=== PATIENT | male | born 1970 | race Hispanic/Latino ===

== ENCOUNTER 2025-05-08 23:17 | Inpatient (IN) | payer SELFPAY ==
[~2025-05-08] VITALS: Ht 177.8 cm; Wt 68.9 kg
--- NOTE | 2025-05-08 23:56 | EKG ---
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
[2025-05-09] VITALS (14 sets, daily range): BP systolic 116–175; BP diastolic 51–92; PULSE 85–99; RESP 15–21; TEMP 97.4–98; O2SAT 98–100
[2025-05-09 00:30] LABS: CREATININE 0.6 mg/dL (0.5-1.3); GLOMERULAR FILTR. RATE CALC 115.0 mL/min (>90); GLUCOSE,RANDOM 112.0 mg/dL (70-105); SODIUM SERUM 125.0 mmol/L (136-145); UREA NITROGEN, BLOOD 9.0 mg/dL (7-18)
[2025-05-09 00:34] LABS: ASPARTATE AMINOTRANSFERASE 40.0 U/L (10-37); TOTAL PROTEIN, SERUM 6.8 g/dL (6.0-8.3)
[2025-05-09 00:43] LABS: IMMATURE GRANULOCYTE ABSOLUTE 0.03 K/uL (0-1); NUCLEATED RED BLOOD CELLS 0.0 % (0.0-0.19); PLATELET COUNT (AUTO) 146 K/uL (130-400); RED BLOOD CELL COUNT(AUTO) 2.95 MIL/uL (4.50-6.20); RED CELL DISTRIBUTION WIDTH 17.2 % (11.0-15.5); WHITE BLOOD COUNT (AUTO) 8.4 K/uL (4.8-10.8)
[2025-05-09 00:53] LABS: INR 1.59 (0.85-1.15)
--- NOTE | 2025-05-09 01:11 | ERN ---
ED Note History of Present Illness Stated Complaint: SOB, ABD DISTENTION Chief Complaint: Multiple Complaints Time Seen by MD: 23:33 Time Seen by Midlevel: 23:33 Dictation: The patient is a 55-year-old male with a history of liver cirrhosis, recently d iagnosed with tuberculosis who presents to the emergency department with complaints of shortness of breath onset 40 minutes prior to arrival. Patient also reports abdominal distention. Patient reports occasional clear productive cough. Reports that he was recently diagnosed with tuberculosis in [place] and is supposed to scheduled for treatment starting on Sunday. Patient denies any chest pain, denies any fevers, nausea or vomiting. Patient is poor historian Allergies: Coded Allergies: No Known Allergies (Unverified Allergy, Unknown, 05/08/25) Past Medical History Past Medical History: Other Additional Past Medical Hx: TB, CIRRHOSIS Surgical History: None RN Note Reviewed/Agreed w/PFSH: Yes Review of System Dictation Constitutional: Negative for fever,chills, and weight loss Eyes: Negative for injury, pain,redness, and discharge ENT: Negative for injury,pain or swelling Cardiovascular: Negative for chest pain, palpitations, and edema Respiratory: Negative for wheezing, positive for shortness of breath, cough Abdomen/GI: Negative for nausea, vomiting, diarrhea, and constipation positive for abdominal pain Back: Negative for injury and pain : Negative for injury, bleeding and discharge MS/Extremity: Negative for injury and deformity Skin: Negative for rash, and discoloration Neuro: Negative for headache, weakness, numbness, tingling, and seizure Psych: Negative for suicide ideation, homicidal ideation, and hallucinations Initial Vital Sign VS Vital Signs Date Time Temp Pulse Resp B/P (MAP) Pulse Ox O2 Delivery O2 Flow Rate FiO2 05/08/25 23:19 98.8 109 27 141/95 99 Room Air 05/09/25 00:15 0 21 Physical Exam Dictation Vital Signs reviewed General Appearance: Alert, oriented x 3, mildly distress, ill-appearing Head and Face: non-traumatic. Eyes: PERRL, pink conjunctivas, eyelid no trauma, anterior chamber with arcus senilis. Ears: Pinnas intact and no signs of trauma or erythema ear canals clear and no discharge TM no erythema Nose: No discharge, no bleeding. Oropharynx: Mouth normal, tongue pink. pharynx clear,no erythema, tonsils no exudates, no abscesses noted, mucous membrane moist Neck: Supple, non-tender, no thyromegaly, no masses, no JVD, no bruits Breast:Deferred Chest:No tenderness, no crepitus, no paradoxical movement, no retractions Lungs:Clear, well-ventilated, symmetric, no rales, no wheezing, no rhonchi, no stridor, diminished sounds Heart: Regular rate, regular rhythm, no murmur, no gallops Vascular: 3+ bilateral pitting edema Abdomen: Firm, diminished bowel sounds, distended no guarding, nontender, no rebound, no masses no hepatomegaly, no splenomegaly, no Thompson's sign, no hernias. Rectal: Deferred Genital: Deferred Neurological: Normal speech, motor function intact, sensory function intact Musculoskeletal: Neck nontender, full range of motion, back nontender, full range of motion, Extremities: nontender, full range of motion Skin: Color pale, dry, no turgor, no rash, no lacerations, no abrasions, no contusions. Lymphatic: Deferred Results (Laboratory/Radiology) Laboratory/Radiology Laboratory Tests Test 05/09/25 00:12 White Blood Count 8.4 K/uL (4.8-10.8) Red Blood Count 2.95 MIL/uL (4.50-6.20) L Hemoglobin 9.6 g/dL (14.0-18.0) L Hematocrit 27.4 % (42-54) L Mean Corpuscular Volume 92.9 fL (79-99) Mean Corpuscular Hemoglobin 32.5 pg (27.0-33.0) Mean Corpuscular Hemoglobin Concent 35.0 g/dL (32.0-36.0) Red Cell Distribution Width 17.2 % (11.0-15.5) H Platelet Count 146 K/uL (130-400) Mean Platelet Volume 8.5 fL (7.5-10.5) Immature Granulocyte % (Auto) 0.4 % (0-1) Neutrophils (%) (Auto) 76.6 % (40.0-77.0) Lymphocytes (%) (Auto) 9.2 % (21.0-51.0) L Monocytes (%) (Auto) 12.2 % (3.0-13.0) Eosinophils (%) (Auto) 1.0 % (0.0-8.0) Basophils (%) (Auto) 0.6 % (0.0-5.0) Neutrophils # (Auto) 6.4 K/uL (1.8-7.7) Lymphocytes # (Auto) 0.8 K/uL (1.0-4.8) L Monocytes # (Auto) 1.0 K/uL (0.1-1.0) Eosinophils # (Auto) 0.08 K/uL (0.00-0.70) Basophils # (Auto) 0.05 K/uL (0.00-0.20) Absolute Immature Granulocyte (auto 0.03 K/uL (0-1) Nucleated Red Blood Cells 0.0 % (0.0-0.19) White Cell Morphology Comment See comments Prothrombin Time 16.1 SEC (9.6-11.6) H Prothromb Time International Ratio 1.59 (0.85-1.15) H Activated Partial Thromboplast Time 48.7 SEC (26.3-35.5) H Sodium Level 125 mmol/L (136-145) L Potassium Level 3.2 mmol/L (3.5-5.1) L Chloride Level 95 mmol/L (101-111) L Carbon Dioxide Level 25 mmol/L (21-32) Blood Urea Nitrogen 9 mg/dL (7-18) Creatinine 0.6 mg/dL (0.5-1.3) Glomerular Filtration Rate Calc 115 mL/min (>90) Random Glucose 112 mg/dL (70-105) H Total Calcium 7.3 mg/dL (8.5-10.1) L Magnesium Level 1.50 mg/dL (1.80-2.40) L Total Bilirubin 1.6 mg/dL (0.2-1.0) H Aspartate Amino Transf (AST/SGOT) 40 U/L (10-37) H Alanine Aminotransferase (ALT/SGPT) 31 U/L (12-78) Alkaline Phosphatase 220 U/L (50-136) H Ammonia 20 umol/L (11-32) Troponin I High Sensitivity 9 ng/L (4-75) B-Type Natriuretic Peptide 36 pg/mL (0-100) Total Protein 6.8 g/dL (6.0-8.3) Albumin 1.6 g/dL (3.5-5.0) L Lipase 114 U/L (16-77) H EXAM: CR Chest, 1 view CLINICAL HISTORY: Shortness of breath. COMPARISON: None provided. FINDINGS: Severe pneumothorax (more than 90%) on the right side with compressive atelectasis and superior displacement of the entire right lung. Small pleural effusion on the right side. The left lung is clear. The cardiac size is within normal limits. No acute osseous abnormality. IMPRESSION: Severe pneumothorax (more than 90%) on the right side with compressive atelectasis and superior displacement of the entire right lung. Small pleural effusion on the right side. Labs Reviewed?: Yes EKG: (+) rhythm (Sinus rhythm) EKG Comment: Date:05/08/2025 Time:2351 Ventricular rate:98 OH interval:142 QRS duration:86 QT/QTc:343/438 EKG interpretation: Sinus rhythm Reviewed by ED Attending no STEMI ED Course ED Course Orders Procedure Category Date Status Time Cbc With Differential LAB 05/08/25 Complete 23:46 Chest 1vw RAD 05/08/25 Resulted 23:46 12 Lead Ekg Tracing- EKG 05/08/25 Complete Technical 23:46 Magnesium LAB 05/08/25 Complete 23:46 Troponin I High LAB 05/08/25 Complete Sensitivity 23:46 Urinalysis Profile LAB 05/08/25 Logged 23:46 Ammonia LAB 05/08/25 Complete 23:46 Pt And Ptt LAB 05/08/25 Complete 23:46 Comprehensive LAB 05/08/25 Complete Metabolic Panel 23:46 Lipase LAB 05/08/25 Complete 23:46 B-Type Natriuretic LAB 05/08/25 Complete Peptide 23:46 Potassium Bicarb/Cit PHA 05/09/25 Complete Ac 25meq (K-Lyte Ta 01:00 Magnesium Oxide PHA 05/09/25 Complete (Mag-Ox) 01:00 Morphine 2mg Syg PHA 05/09/25 Complete (Morphine 2mg Syg) 01:00 Ondansetron 4mg Inj PHA 05/09/25 Complete (Zofran 4mg Inj) 01:00 Ct Chest W/O Contrast CT 05/09/25 Taken 01:43 *Nursing CPOE 05/09/25 Transmitted Communication: 01:44 Infectious Disease CONPHYSVC 05/09/25 Transmitted Consult 08:00 Consistent Carb DIET 05/10/25 Transmitted Breakfast M. Tuberculosis Pcr OMID 05/09/25 Logged 02:14 Basic Metabolic Panel LAB 05/09/25 Logged 04:00 Cbc With Differential LAB 05/09/25 Logged 04:00 Magnesium LAB 05/09/25 Logged 04:00 Phosphorus LAB 05/09/25 Logged 04:00 Respiratory Cult OMID 05/09/25 Logged W/Gram Stain 02:14 Urinalysis Profile LAB 05/09/25 Logged 02:14 Ammonia LAB 05/09/25 Logged 02:14 Initiate Po ABHINAV 05/09/25 In Process Hypokalemia Protoc 02:14 Potassium Chloride PHA 05/09/25 In Process 20meq/100ml ([place] 02:30 Potassium Chl 10% PHA 05/09/25 In Process Elixir 20meq (Kcl 10% 02:30 Potassium Chloride PHA 05/09/25 In Process 20meq Er (K-Dur/Klor- 02:30 Notify Physician If CPOE 05/09/25 Transmitted There Is 02:14 Notify Md On The Next CPOE 05/09/25 Transmitted 02:14 Notify Md On The CPOE 05/09/25 Transmitted Next(Cont.) 02:14 Magnesium 2gm Premix PHA 05/09/25 In Process 50ml (Magnesium 2gm 02:30 Doxycycline 100mg+Ns PHA 05/09/25 In Process 250ml (Doxycycline 02:30 Blood Cult OMID 05/09/25 Logged 02:14 Lactic Acid LAB 05/09/25 Logged 02:14 Procalcitonin LAB 05/09/25 Logged 02:14 Activity: Ad Karyna CPOE 05/09/25 Transmitted 02:14 Apply Knee High Teds CPOE 05/09/25 Transmitted 02:14 Apply Scds CPOE 05/09/25 Transmitted 02:14 Condition: CPOE 05/09/25 Transmitted 02:14 Daily Weights CPOE 05/09/25 Transmitted 02:14 Daily Fluid Intake CPOE 05/09/25 Transmitted Restriction 02:14 I&O Q Shift CPOE 05/09/25 Transmitted 02:14 Nurse To Enter Home CPOE 05/09/25 Transmitted Medication 02:14 Oxygen By Nc/Pulse Ox CPOE 05/09/25 Transmitted 02:14 Vital Signs(Adult CPOE 05/09/25 Transmitted Hospitalist) 02:14 Admit Orders ADM 05/09/25 Transmitted 02:14 Acetaminophen 325 Tab PHA 05/09/25 In Process (Tylenol 325mg Tab 02:30 Ipratropium/Albuterol PHA 05/09/25 In Process Neb (Duoneb) 06:00 Enoxaparin Sodium 40 PHA 05/09/25 In Process Mg/0.4 Ml (Lovenox) 09:00 Famotidine 20mg Tab PHA 05/09/25 In Process (Pepcid 20mg Tab) 09:00 Hydralazine 20mg Inj PHA 05/09/25 In Process (Apresoline 20mg In 02:30 Lactulose 20 Gm/30 Ml PHA 05/09/25 In Process Udcup (Constulose 09:00 Ondansetron 4mg Inj PHA 05/09/25 In Process (Zofran 4mg Inj) 02:30 Morphine 2mg Syg PHA 05/09/25 In Process (Morphine 2mg Syg) 02:30 Droplet Precautions CPOE 05/09/25 Transmitted 02:21 Guaifenesin Sug-Nikos PHA 05/09/25 In Process 100 Mg/5ml (Robituss 02:30 Us Abdominal Complete US 05/09/25 Logged 02:21 Vital Signs Date Time Temp Pulse Resp B/P (MAP) Pulse Ox O2 Delivery O2 Flow Rate FiO2 05/09/25 01:46 97 18 124/78 99 Non-Rebreather+ 10 100 05/09/25 00:15 100 18 142/79 100 Room Air* 0 21 05/08/25 23:19 98.8 109 27 141/95 99 Room Air Medical Decision Making MDM MDM: The patient is a 55-year-old male with a history of liver cirrhosis, recently diagnosed with tuberculosis who presents to the emergency department with complaints of shortness of breath onset 40 minutes prior to arrival. Patient also reports abdominal distention. Patient reports occasional clear productive cough. Reports that he was recently diagnosed with tuberculosis in [place] and is supposed to scheduled for treatment starting on Sunday. Patient denies any chest pain, denies any fevers, nausea or vomiting. Patient is poor historian 0120: Patient's mother has provided with records from [facility]. According to the records patient was initially admitted I on March 22 2025 with a complaints of cough, sore throat for the last six months. Patient however left AMA on April 03. Patient was diagnosed with tuberculosis but did not start treatment. Patient returned again on April 28 and was found to have a large hydropneumothorax and left pneumothorax. During the hospital stay patient was being treated for tuberculosis but patient eventually pulled his chest tube and left the hospital but was found in the parking lot because his car was not able to start. Patient left AMA during that visit. Patient however did not provided that information to us. Patient said that is the hospital was the one that removed his chest tube. Patient never mentioned he left against medical advice. CBC showed no leukocytosis, normocytic anemia, chemistry showed a hyponatremia, hypokalemia, hypomagnesemia, normal renal function, negative troponin, negative BNP. X-ray showed right large pneumothorax. Case was discussed with after x-ray who evaluated the patient and suggest a ct chest and nonrebreather. Patient will be admitted for further evaluation and treatment. Differential diagnosis: Pneumonia, ascites, fluid overload, CHF, ACS, pneumothorax Comorbidities: Tuberculosis,, hypertension Tests considered and not ordered secondary to shared decision making include: none Previous outside records reviewed: none Risk of complication and/or morbidity or mortality of patient management: The patient meets criteria for admission. Need for emergency major/minor surgery: No There are no social concerns with this patient. I independently interpreted the tests I ordered (labs, urinalysis, etc.). I discussed the case with the hospitalist for admission. Bhupendra RUSSO who accepts admission I discussed the case with the following specialists: none. Historian: pateint. I independently interpreted imaging studies and EKGs that I ordered (US, CT, XR, EKG, etc.). External chart review: none. Medical management and examination interpretation discussions were had by me with other qualified healthcare professionals as indicated for the patient's care. Critical Care Note Critical Time: other (40) Comment(s) Total critical care time was 40 minutes. Excluding time for procedures. Management of critically ill patient with concern for acute decompensation. Management included interpretation of laboratory values and imaging, hemodynamics, time for consultation with consultants and admitting physician. DX & DISP Disposition: Inpatient Decision to Admit Date: May 09, 2025 Decision to Admit Time: 02:38 Departure Impression: Primary Impression: Pneumothorax on right Additional Impressions: Ascites, Anemia, Hypokalemia, Hyponatremia, Hypomagnesemia, History of active tuberculosis Condition: Stable Referrals: NONE (PCP) I have examined patient, & reviewed all documents, & agreed W/ the Diagnosis, and Plan KENDY ALVAREZ [facility] May 09, 2025 01:11
[2025-05-09] MEDS: MAGNESIUM OXIDE 400 MG TABLET PO ONE (01:23)
--- NOTE | 2025-05-09 02:12 | NUR ---
PT TO CT SCAN AT THIS TIME.
--- NOTE | 2025-05-09 02:12 | HP ---
History of Present Illness Reason for Visit: sob History of Present Illness Mr. Rust is a 55-year-old male that was seen and examined today on 05/09/2025. Patient reports that he came to the emergency department with a chief complaint of shortness of breath. Onset was 10:00 p.m.. Location is to lungs. Duration is on and off. Character is described as, " like I can not catch my breath. "Symptoms abruptly woke up patient during the night. Symptoms are aggravated with minimal exertion. There was no alleviating factors. Patient states that he has been told by [facility] that he has tuberculosis and he was pending to start treatment on Sunday. Past Medical History ADDITIONAL PAST MEDICAL HISTORY: [Cirrhosis, tuberculosis] SOCIAL HISTORY: [Negative for smoking. Former heavy alcohol user. Negative drug use. Patient lives with his mom, Swapna Felix. Patient is dependent of his ADLs. Patient denies difficulty pain is bills.] SURGICAL HISTORY: [Appendectomy] Review of Systems General: No Fever, No Chills, No Night Sweats, No Fatigue, No Malaise, No Ap petite, No Other HEENT: No Head Aches, No Visual Changes, No Eye Pain, No Ear Pain, No Dysphasia, No Sinus Congestion, No Post Nasal Drip, No Sore Throat, No Other Pulmonary: Dyspnea; No Cough, No Pleuritic Chest Pain, No Other Cardiovascular: No: Chest Pain, Palpitations, Orthopnea, Paroxysmal Noc. Dyspnea, Edema, Lt Headedness, Other Gastrointestinal: No: Nausea, Vomiting, Abdominal Pain, Diarrhea, Constipation, Melena, Hematochezia, Other Genitourinary: No Dysuria, No Frequency, No Incontinence, No Hematuria, No Retention, No Other Musculoskeletal: No: other, neck pain, shoulder pain, arm pain, back pain, hand pain, leg pain, foot pain Skin: No Urticaria, No Rash, No Other Neurological: No: Weakness, Numbness, Incoordination, Change in speech, Confusion, Seizures, Other Allergies: Coded Allergies: No Known Allergies (Unverified Allergy, Unknown, 05/08/25) Exam Vital Signs Vital Signs Date Time Temp Pulse Resp B/P (MAP) Pulse Ox O2 Delivery O2 Flow Rate FiO2 05/09/25 01:46 97 18 124/78 99 Non-Rebreather+ 10 100 05/08/25 23:19 98.8 General Appearance: Alert, Oriented X3, Cooperative, moderate distress, Other (Generally ill-appearing) HEENT: Atraumatic, EOMI, Mucous membr. moist/pink Respiratory: Other (Left upper and lower lobe bronchi) Cardiovascular: Regular rate, Regular rhythm, Normal S1, Normal S2 Abdominal: No tenderness Extremities: No edema, Other (Positive weakness to bilateral lower extremities, positive muscle atrophy) Skin: Other Neuro: Normal speech, Strength at 5/5 X4 ext, Sensation intact, Cranial nerves 3-12 NL Psych/Mental Status: Mental status NL, Mood NL, Thoughts/Content NL Assessment/Plan ASSESSMENT: [ Pneumonia, POA Tuberculosis, POA Hypokalemia, POA Hypomagnesemia, POA . Left lung pneumothorax, poa Liver cirrhosis PLAN: [ Admit patient to medical floor as inpatient status. Pneumonia: Check sputum culture, follow up with the results. DuoNebs every 6 hours. Empiric antibiotic therapy with doxycycline and Rocephin. Supportive treatment with Tylenol, guaifenesin Tuberculosis: Patient states that he has been diagnosed with tuberculosis in the outpatient setting. Consult infectious disease service for evaluation and treatment recommendations. Check TB test by PCR, follow up with the results. Hypokalemia, hypomagnesemia: Replace magnesium and potassium per hospital protocol. Liver cirrhosis: Monitor intake and output every shift. 1500 mL daily fluid restriction. Check abdominal ultrasound, follow up with the results. Consider referring to Interventional Radiology if any evidence of moderate to large ascites. Daily weights. Check ammonia level, follow up with the results. Lactulose 20 g/30 mL by mouth twice daily. Left pneumothorax: Pulmonology for evaluation and further recommendations. Supplemental oxygen to maintain O2 saturation greater 92%. GI prophylaxis, famotidine DVT prophylaxis, Uriel's and SCDs avoid anticoagulation at this time due to known liver cirrhosis ADVANCED CARE PLANNING 1. Which of the following were discussed? Hospice Care - Yes Therapeutic options - yes Advance Directives - Yes - patient states he does not have any advance directives in place at this time, however his mother can make decisions for him if he becomes unable. Other discussions - patient wishes to remain a full code at this time 2. Discussed with who? Patient 3. Voluntary nature of this service was explained to the patient? Yes 4. Amount of time spent - ___16 minutes____ 5. Reviewed by Physician? (if this service was performed by NPP) Yes This document was generated in part using voice recognition software, occasional wrong word or sound alike substitutions may have occurred due to the inherent limitations of voice recognition software. Read the chart carefully and jere gnize using context, where the substitutions have occurred. Although every effort was made to edit the content, batteryman and typing errors may occur ATTESTATION BY PHYSICIAN I have seen and examined the patient. I reviewed the documentation, medical decision making, and treatment plan as noted by the mid-level provider above. I agree with the findings and plan of care.] JAYY DUMONT [facility] May 09, 2025 02:11
[2025-05-09] MEDS ORDERED: PoTASSium chloRIDE 20MEQ ER 20 MEQ ERTAB PO PRN (02:30)
--- NOTE | 2025-05-09 02:30 | HMCIMG ---
EXAM: CR Chest, 1 view CLINICAL HISTORY: Shortness of breath. COMPARISON: None provided. FINDINGS: Severe pneumothorax (more than 90%) on the right side with compressive atelectasis and superior displacement of the entire right lung. Small pleural effusion on the right side. The left lung is clear. The cardiac size is within normal limits. No acute osseous abnormality. IMPRESSION: Severe pneumothorax (more than 90%) on the right side with compressive atelectasis and superior displacement of the entire right lung. Small pleural effusion on the right side. /[place]
[2025-05-09] MEDS: DOXYCYCLINE 100MG+NS 250ML 250 ML IV SCH (02:59)
--- NOTE | 2025-05-09 03:34 | HMCIMG ---
EXAM: CT Chest without IV contrast CLINICAL HISTORY: Shortness of breath. TECHNIQUE: Thin-section axial CT through the thorax without intravenous contrast. Coronal, sagittal and MIP reformation were generated on the same workstation. CT scan done according to ALARA (As Low as Reasonably Achievable). CONTRAST USED: None. COMPARISON: None provided. FINDINGS: Large pneumo on the right side.Large pneumothorax and a small hydrothoraxthorax and a small hydrothorax on the right side. Complete collapse of the right middle and lower lobes with partial collapse of the right upper lobe with superior medial displacement of the compressed right lung. Dependent atelectasis with minimal pleural effusion on the left side. No pericardial effusion. The heart size is within normal limits. No axillary, supraclavicular, or mediastinal lymphadenopathy. No focal thyroid abnormality. Limited views of the upper abdomen demonstrate large free fluid in the visualized upper abdomen. Possible cirrhotic changes in the liver. No acute or suspicious osseous abnormality. Mild thoracolumbar spondylosis. IMPRESSION: Large pneumothorax and a small hydrothorax on the right side. Complete collapse of the right middle and lower lobes with partial collapse of the right upper lobe with superior medial displacement of the compressed right lung. Dependent atelectasis with minimal pleural effusion on the left side. Large free fluid in the visualized upper abdomen with possible cirrhotic changes in the liver. /[place]
[2025-05-09 05:32] LABS: ADD UA MICROSCOPIC NO; APPEARANCE,URINE CLEAR (CLEAR); GLUCOSE, URINE (UA) NEGATIVE (NEGATIVE); LEUKOCYTE ESTERASE ,URINE NEGATIVE Leu/uL (NEGATIVE); NITRATE,URINE NEGATIVE (NEGATIVE); OCCULT BLOOD,URINE NEGATIVE (NEGATIVE)
[2025-05-09 05:45] LABS: IMMATURE GRANULOCYTE ABSOLUTE 0.02 K/uL (0-1); NUCLEATED RED BLOOD CELLS 0.0 % (0.0-0.19); PLATELET COUNT (AUTO) 124 K/uL (130-400); RED BLOOD CELL COUNT(AUTO) 2.80 MIL/uL (4.50-6.20); RED CELL DISTRIBUTION WIDTH 16.9 % (11.0-15.5); WHITE BLOOD COUNT (AUTO) 6.1 K/uL (4.8-10.8)
[2025-05-09 06:04] LABS: CREATININE 0.5 mg/dL (0.5-1.3); GLOMERULAR FILTR. RATE CALC 122.0 mL/min (>90); GLUCOSE,RANDOM 86.0 mg/dL (70-105); PHOSPHORUS 3.4 mg/dL (2.5-4.9); SODIUM SERUM 126.0 mmol/L (136-145); UREA NITROGEN, BLOOD 7.0 mg/dL (7-18)
[2025-05-09] MEDS: MAGNESIUM 2GM PREMIX 50ML 50 ML IV PRN (06:26)
[2025-05-09] MEDS: PoTASSium chl 10% ELIXIR 20MEQ 20 MEQ/15 ML UDCUP PO PRN (06:26)
--- NOTE | 2025-05-09 06:59 | HMCIMG ---
EXAM: CR Chest, 1 View. CLINICAL HISTORY: REEVALUATE RIGHT PNEUMOTHORAX COMPARISON: Chest single view earlier today 05/09/2025 0123 hrs. FINDINGS: Stable single view chest since prior exam. Unchanged severe pneumothorax (more than 90%) on the right side with compressive atelectasis and superior displacement of the entire right lung. Small pleural effusion on the right side. The left lung is clear. The cardiac size is within normal limits. No acute osseous abnormality. IMPRESSION: Unchanged severe pneumothorax (more than 90%) on the right side with compressive atelectasis and superior displacement of the entire right lung. Small pleural effusion on the right side. /[place]
[2025-05-09] MEDS: FAMOTIDINE 20MG TAB PO SCH (08:12)
[2025-05-09] MEDS: ENOXAPARIN SODIUM 40 MG/0.4 ML SYRINGE SQ SCH (08:12)
[2025-05-09] MEDS: LACTULOSE 20 GM/30 ML UDCUP PO SCH (08:13)
--- NOTE | 2025-05-09 08:28 | CONS ---
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 As per patient he was sleeping and shortness of breaths we will came up during the night. Dyspnea reported with minimal exertion. Patient reports previous recent admissions at [facility] for similar symptoms and reported previous chest tube placements for large pleural effusion. As per patient chest tubes were discontinued shortly prior to discharge. On arrival to the ED patient has a temperature 98.8 pulse of 109 respiratory rate of 27 blood pressure 141/95 saturating 99% at room air. Laboratory remarkable for H&H of 9.6/27.4 normal white count normal neutrophils. Chemistries shows sodium of 125 potassium of 3.2 chloride of 95 glucose 112 mg/dL total calcium of 7.3 albumin of 1.6 calculated calcium per albumin 9.2, lipase of 114, total bili 1.6 AST of 40 alkaline phosphatase of 220. Coagulation studies showed a PT of 16.1 INR 1.59 APTT of 48.7. Urinalysis unremarkable. Negative UDS. HIV test nonreactive. Initial chest x-ray showed severe pneumothorax more than 90% on the right side with compressive atelectasis and superior displacement of the right lung. On CT of the chest large pneumothorax and small hydrothorax of the right side. Complete collapse of the right middle and lower lobes with partial collapse of the right upper lobe with superior medial displacement of the compressed right lung. Dependent atelectasis with minimal pleural effusions with the left side. Large free fluid in the visualized upper abdomen with possible cirrhotic changes in the liver. Patient was admitted by the catalyst team and we are consulted for pneumothorax and critical care management. PAST MEDICAL HX: see above PAST SURGICAL HX: noncontributory SOCIAL HISTORY: No tobacco, ETOH, or illicit drug use Coded Allergies: No Known Allergies (Unverified Allergy, Unknown, 05/08/25) REVIEW OF SYSTEMS: Const: + generalized malaise Eyes:[ no recent vision problems] ENT: [No congestion, ear pain, or sore throat] C/V: + Mild chest pain with breathing. Resp: + dyspnea on exertion and shortness of breaths. GI: + abdominal distention : [No incontinence of or dyuria] M/S: + bilateral lower extremity swelling. Skin: [No rash] Neuro: [no headache, focal numbness, or weakness, dizziness or seizures] Psych: [no depression or anxiety] Heme: [no abnormal bruising or bleeding] Lymph: [no swollen glands] PHYSICAL EXAM: GENERAL: alert, weak, awake oriented x 3 HEENT: EOMI, Sclera none icteric, moist mucosa NECK: Supple, no JVD, trachea midline LUNGS: Absent lung sounds to right lower lobes, diminished breath sounds left lobes. No wheezes HEART: Regular rate and rhythm. Normal S1 and S2, without murmurs ABD: Abdomen distended. Bowel sounds hypoactive. EXT: No clubbing cyanosis+ two pitting edema NEURO: Alert and oriented to person, follows commands Vital Signs (last 8hr) Date Time Temp Pulse Resp B/P (MAP) Pulse Ox O2 Delivery O2 Flow Rate FiO2 05/09/25 07:13 82 20 124/76 100 Non-Rebreather+ 15 100 05/09/25 07:00 89 19 Non Rebreather 15.0 100 05/09/25 06:56 88 18 05/09/25 04:51 98.1 88 18 128/88 99 Non-Rebreather+ 10 100 05/09/25 03:38 97 18 124/75 100 Non-Rebreather+ 10 100 05/09/25 03:10 92 19 Non Rebreather 15.0 100 05/09/25 01:46 97 18 124/78 99 Non-Rebreather+ 10 100 LABS: Hematology Labs: Test 05/09/25 05:37 05/09/25 00:12 Range/Units White Blood Count 6.1 # 4.8-10.8 K/uL Red Blood Count 2.80 L 4.50-6.20 MIL/uL Hemoglobin 9.1 L 14.0-18.0 g/dL Hematocrit 26.1 L 42-54 % Mean Corpuscular Volume 93.2 79-99 fL Mean Corpuscular Hemoglobin 32.5 27.0-33.0 pg Mean Corpuscular Hemoglobin Concent 34.9 32.0-36.0 g/dL Red Cell Distribution Width 16.9 H 11.0-15.5 % Platelet Count 124 L 130-400 K/uL Mean Platelet Volume 8.7 7.5-10.5 fL Immature Granulocyte % (Auto) 0.3 0-1 % Neutrophils (%) (Auto) 73.1 40.0-77.0 % Lymphocytes (%) (Auto) 13.7 L 21.0-51.0 % Monocytes (%) (Auto) 10.7 3.0-13.0 % Eosinophils (%) (Auto) 1.5 0.0-8.0 % Basophils (%) (Auto) 0.7 0.0-5.0 % Neutrophils # (Auto) 4.5 1.8-7.7 K/uL Lymphocytes # (Auto) 0.8 L 1.0-4.8 K/uL Monocytes # (Auto) 0.7 0.1-1.0 K/uL Eosinophils # (Auto) 0.09 0.00-0.70 K/uL Basophils # (Auto) 0.04 0.00-0.20 K/uL Absolute Immature Granulocyte (auto 0.02 0-1 K/uL Nucleated Red Blood Cells 0.0 0.0-0.19 % White Cell Morphology Comment See comments Chemistry Labs: Test 05/09/25 05:37 05/09/25 00:12 Range/Units Sodium Level 126 L 136-145 mmol/L Potassium Level 3.3 L 3.5-5.1 mmol/L Chloride Level 97 L 101-111 mmol/L Carbon Dioxide Level 26 21-32 mmol/L Blood Urea Nitrogen 7 7-18 mg/dL Creatinine 0.5 0.5-1.3 mg/dL Glomerular Filtration Rate Calc 122 >90 mL/min Random Glucose 86 70-105 mg/dL Lactic Acid Level 1.3 0.8-2.5 mmol/L Total Calcium 7.1 L 8.5-10.1 mg/dL Phosphorus Level 3.4 2.5-4.9 mg/dL Magnesium Level 1.50 L 1.80-2.40 mg/dL Ammonia 13 11-32 umol/L Total Bilirubin 1.6 H 0.2-1.0 mg/dL Aspartate Amino Transf (AST/SGOT) 40 H 10-37 U/L Alanine Aminotransferase (ALT/SGPT) 31 12-78 U/L Alkaline Phosphatase 220 H 50-136 U/L Troponin I High Sensitivity 9 4-75 ng/L B-Type Natriuretic Peptide 36 0-100 pg/mL Total Protein 6.8 6.0-8.3 g/dL Albumin 1.6 L 3.5-5.0 g/dL Lipase 114 H 16-77 U/L Procalcitonin < 0.05 L 0.05-0.5 ng/mL Coagulation Labs: Test 05/09/25 00:12 Range/Units Prothrombin Time 16.1 H 9.6-11.6 SEC Prothromb Time International Ratio 1.59 H 0.85-1.15 Activated Partial Thromboplast Time 48.7 H 26.3-35.5 SEC DIAGNOSTICS / RADIOLOGY RESULTS: [ ][facility] [address] [place] [id number] IMAGING REPORT Signed PATIENT: FE CHILD MR#: [id number] : 1970 SEX: M AGE: 55 LOCATION: EDHIP ORDER 1 STATUS: ADM IN REPORT#: [id number] SERVICE 0 REASON: REEVALUATE RIGHT PNEUMOTHORAX ORDERING PHYSICIAN: JYOTI GONZALEZ MD PROCEDURE: CXR1VW - CHEST 1VW EXAM: CR Chest, 1 View. CLINICAL HISTORY: REEVALUATE RIGHT PNEUMOTHORAX COMPARISON: Chest single view earlier today 05/09/2025 0123 hrs. FINDINGS: Stable single view chest since prior exam. Unchanged severe pneumothorax (more than 90%) on the right side with compressive atelectasis and superior displacement of the entire right lung. Small pleural effusion on the right side. The left lung is clear. The cardiac size is within normal limits. No acute osseous abnormality. IMPRESSION: Unchanged severe pneumothorax (more than 90%) on the right side with compressive atelectasis and superior displacement of the entire right lung. Small pleural effusion on the right side. /[place] DICTATED BY: BAO SAEED Jr., MD DATE: 05/09/25757 ELECTRONICALLY SIGNED BY: BAO SAEED Jr., MD DATE: 05/09/25757 [place] [id number] IMAGING REPORT Signed PATIENT: FE CHILD MR#: [id number] : 1970 SEX: M AGE: 55 LOCATION: EDHIP ORDER 1 STATUS: ADM IN REPORT#: [id number] SERVICE [id number] REASON: REEVALUATE RIGHT PNEUMOTHORAX ORDERING PHYSICIAN: JYOTI GONZALEZ MD PROCEDURE: CXR1VW - CHEST 1VW EXAM: CR Chest, 1 View. CLINICAL HISTORY: REEVALUATE RIGHT PNEUMOTHORAX COMPARISON: Chest single view earlier today 05/09/2025 0123 hrs. FINDINGS: Stable single view chest since prior exam. Unchanged severe pneumothorax (more than 90%) on the right side with compressive atelectasis and superior displacement of the entire right lung. Small pleural effusion on the right side. The left lung is clear. The cardiac size is within normal limits. No acute osseous abnormality. IMPRESSION: Unchanged severe pneumothorax (more than 90%) on the right side with compressive atelectasis and superior displacement of the entire right lung. Small pleural effusion on the right side. /[place] DICTATED BY: BAO SAEED Jr., MD DATE: 05/09/25757 ELECTRONICALLY SIGNED BY: BAO SAEED Jr., MD DATE: 05/09/25 0758 PLAN Upgraded to PCCU -high-risk for decompensation AFBs, TB QuantiFERON ID consult get records from [facility] Plan for 20fr chest tube placement tomorrow. Ther is no evidence of tension. pt is stable. No need for emergent chest tube placement at this time. NEURO: Minimize central acting medications as possible. Maintain fall precautions, adequate lighting during the day PULMONARY: Supplemental 02 as needed. Maintain aspiration precautions at all times CARDIOVASCULAR: Follow hemodynamics. Vital signs per facility protocol GI & NUTRITION: Continue with nutritional support. Continue stool softeners and laxatives as needed. KIDNEYS & ELECTROLYTES: Strict monitoring of intake, output and overall fluid balance. Avoid nephrotoxic medications to the extent possible. Medications to be dosed according to renal function. Monitor electrolytes and replace as needed ENDOCRINE: Maintain blood glucose between 100-180 at all times. Hypoglycemia protocol in place INFECTIOUS DISEASE: Trend temperature, WBC and procalcitonin level Follow cultures, deescalate antibiotics as soon as possible. Panculture if new onset fever ONCOLOGY/HEMATOLOGY/COAGULATION: Monitor for s/s of bleeding Monitor hemoglobin, coagulation studies as needed SKIN: Pressure ulcer prevention per facility protocol Specialty mattress ORTHO/REHAB: Continue PT/OT Prophylaxis: Continue GI and DVT prophylaxis Code Status: Full Resuscitation Disposition: TBD Other: Total patient care time exceeds 35 minutes excluding all procedures. ATTESTATION BY PHYSICIAN I reviewed the documentation, medical decision making, and treatment plan as noted by the mid-level provider above. I agree with the findings and plan of care. Fe Thomas MD, [facility] May 09, 2025 08:28
--- NOTE | 2025-05-09 09:27 | NUR ---
PAGED DR. AVALOS FOR CONSULT
[2025-05-09 11:29] LABS: % IRON SATURATION 16.2 % (30-44); IRON, SERUM 26.0 mcg/dL (65-175)
[2025-05-09 11:36] LABS: LDL DIRECT 39.0 mg/dL (0-99)
[2025-05-09 11:57] LABS: AMPHET/METH SCREEN,URINE NEGATIVE (NEGATIVE); BARBITURATE SCREEN, URINE NEGATIVE (NEGATIVE); CANNABINOID SCREEN,URINE NEGATIVE (NEGATIVE); COCAINE SCREEN,URINE NEGATIVE (NEGATIVE)
[2025-05-09] MEDS: SPIRONOLACTONE 25 MG TAB PO SCH (14:20)
[2025-05-09 14:51] LABS: CREATININE,URINE RANDOM 74.21 mg/dL (30-135)
[2025-05-09 15:20] LABS: HIV 1&2 ANTIBODY Non-Reactive (Negative)
--- NOTE | 2025-05-09 16:55 | NUR ---
PT WAS ADMITTED TO ROOM 201 WITH AIRBORNE PRECAUTIONS DUE TO POSSIBLE TB. PT IN NO APPARENT DISTRESS AND REMAINS WITH NON REBREATHER FACE MASK AT 100% FIO2. MOTHER AT BEDSIDE.
--- NOTE | 2025-05-09 17:01 | PN ---
[facility] PROGRESS NOTE Date of Service: May 09, 2025 Time of Service: 16:41 SUBJECTIVE: Mr. Rust is a 55-year-old male that was seen and examined today on 05/09/2025. Patient reports that he came to the emergency department with a chief complaint of shortness of breath. Onset was 10:00 p.m.. Location is to lungs. Duration is on and off. Character is described as, " like I can not catch my breath. "Symptoms abruptly woke up patient during the night. Symptoms are aggravated with minimal exertion. There was no alleviating factors. Patient states that he has been told by [facility] that he has tuberculosis and he was pending to start treatment on Sunday. 05/09/25: Patient is seen at bedside in ED3, Patient is awake, alert but patient appears to be in acute respiratory distress and complaints of productive cough and diarrhea. He is saturating 100% on 100% non-rebreather mask. Labs revealed hemoglobin 9.1, platelet count 124, WBC 6.1. procalcitonin 0.05, and Na, k, cl to be 126, 3.3, 97 respectively. Mg 1.50 and was replaced. Fe panel, Hepatitis panel, Drug screen, Liver ultrasound, Stool for ova and parasites, stool PCR, HIV test were ordered. Imaging CXR revealed severe pneumothorax (more than 90%) on the right side with compressive atelectasis and superior displacement of the entire right lung. Small pleural effusion on the right side. Gastroenterology consultation has been ordered. The patient started on spironolactone 25 mg PO Daily and Furosemide 40 Mg IV daily. REVIEW OF SYSTEMS CONSTITUTIONAL: Denies fevers, chills, or night sweats. No unintentional weight loss reported. NEUROLOGICAL: Denies headache, amaurosis fugax, motor weakness, sensory deficit, vertigo/spinning sensation, gait abnormalities, or tremors. ENT: No hearing loss, otalgia, otorrhea, rhinitis, rhinorrhea, hoarseness, or sore throat. CARDIOVASCULAR: Denies any exertional angina, dyspnea on exertion, orthopnea, paroxysmal nocturnal dyspnea, palpitations, life-threatening arrhythmias, claudication. PULMONARY: Admits for shortness of breath, cough. SLEEP: Denies morning headaches, daytime somnolence or napping. Denies difficulty falling asleep, staying asleep, waking from sleep. Denies knowledge of snoring. GASTROINTESTINAL: Admits for diarrhea. Denies any type of dysphagia to either liquids or solids. Denies nausea, vomiting, pyrosis, early satiety, abdominal pain, constipation, or changes in stool consistency or caliber. Denies coffee- ground emesis, hematemesis, hematochezia, or melanotic stools. GENITOURINARY: Denies frequency, urgency, nocturia, hematuria or incontinence (Storage/Irritative symptoms.) Low urinary stream, straining to void, urinary intermittency or hesitancy, splitting of the voiding stream, terminal dribbling. ENDOCRINOLOGIC: Denies polyuria, polydipsia, polyphagia or heat/cold intolerances. HEMATOLOGIC: Denies thrombophilia/previous clots, or coagulopathy/bleeding disorders. ONCOLOGIC: Denies personal history of malignancy. DERMATOLOGIC: Denies rashes or pruritus. PSYCHIATRIC: Denies any suicidal or homicidal ideation. Denies hallucinations. PHYSICAL EXAM GENERAL APPEARANCE: The patient is awake, alert, and oriented, in Patient appears to be in moderate distress. NEUROLOGICAL: Cranial nerves II-XII grossly intact. Motor is 5/5 in bilateral upper and lower extremities proximal to distal. No sensory deficits. HEENT: Face is symmetric. Pupils are equal and reactive. Extraocular movements are intact. NECK: Supple. No JVD. No thyromegaly. No submental, submandibular, pre- /postauricular, occipital or supraclavicular lymphadenopathy. LUNGS: Absent or decreased breath sounds. CARDIOVASCULAR: Regular. S1 and S2 normal. No appreciable rubs, murmurs or gallops. ABDOMEN: Distended. Soft, nontender. There is no rebound, voluntary guarding, or rigidity. : Deferred. No Carver. EXTREMITIES: Bilateral pitting edema 2+. not cyanotic. No clubbing. Good capillary refill. SKIN: No skin breakdown. Vital Signs (last 8hr) Date Time Temp Pulse Resp B/P (MAP) Pulse Ox O2 Delivery O2 Flow Rate FiO2 05/09/25 16:00 98.1 91 18 121/79 100 Nonrebreathing Mask 15.0 80 05/09/25 12:00 98.1 85 15 134/92 100 Nonrebreathing Mask 15.0 80 05/09/25 11:55 89 18 LABS: Laboratory: Test 05/09/25 14:40 05/09/25 06:43 05/09/25 05:37 05/09/25 04:51 Range/Units Urine Random Creatinine 74.21 30-135 mg/dL Urine Random Sodium 48 40-220 mmol/l Urine Random Potassium 35 25-125 mmol/L Urine Random Chloride 105 L 110-250 mmol/L Iron Level 26 L 65-175 mcg/dL Total Iron Binding Capacity 160 L 250-450 mcg/dL Percent Iron Saturation 16.2 L 30-44 % HIV (1&2) Antibody Non-Reactive Negative HIV P24 Antigen, Qualitative Non-Reactive Negative White Blood Count 6.1 # 4.8-10.8 K/uL Red Blood Count 2.80 L 4.50-6.20 MIL/uL Hemoglobin 9.1 L 14.0-18.0 g/dL Hematocrit 26.1 L 42-54 % Mean Corpuscular Volume 93.2 79-99 fL Mean Corpuscular Hemoglobin 32.5 27.0-33.0 pg Mean Corpuscular Hemoglobin Concent 34.9 32.0-36.0 g/dL Red Cell Distribution Width 16.9 H 11.0-15.5 % Platelet Count 124 L 130-400 K/uL Mean Platelet Volume 8.7 7.5-10.5 fL Immature Granulocyte % (Auto) 0.3 0-1 % Neutrophils (%) (Auto) 73.1 40.0-77.0 % Lymphocytes (%) (Auto) 13.7 L 21.0-51.0 % Monocytes (%) (Auto) 10.7 3.0-13.0 % Eosinophils (%) (Auto) 1.5 0.0-8.0 % Basophils (%) (Auto) 0.7 0.0-5.0 % Neutrophils # (Auto) 4.5 1.8-7.7 K/uL Lymphocytes # (Auto) 0.8 L 1.0-4.8 K/uL Monocytes # (Auto) 0.7 0.1-1.0 K/uL Eosinophils # (Auto) 0.09 0.00-0.70 K/uL Basophils # (Auto) 0.04 0.00-0.20 K/uL Absolute Immature Granulocyte (auto 0.02 0-1 K/uL Nucleated Red Blood Cells 0.0 0.0-0.19 % Sodium Level 126 L 136-145 mmol/L Potassium Level 3.3 L 3.5-5.1 mmol/L Chloride Level 97 L 101-111 mmol/L Carbon Dioxide Level 26 21-32 mmol/L Blood Urea Nitrogen 7 7-18 mg/dL Creatinine 0.5 0.5-1.3 mg/dL Glomerular Filtration Rate Calc 122 >90 mL/min Random Glucose 86 70-105 mg/dL Lactic Acid Level 1.3 0.8-2.5 mmol/L Total Calcium 7.1 L 8.5-10.1 mg/dL Phosphorus Level 3.4 2.5-4.9 mg/dL Magnesium Level 1.50 L 1.80-2.40 mg/dL Ammonia 13 11-32 umol/L Triglycerides Level 32 30-200 mg/dL Cholesterol Level 78 <200 mg/dL LDL Cholesterol 39 0-99 mg/dL HDL Cholesterol 40 29-71 mg/dL Thyroid Stimulating Hormone (TSH) 3.57 0.36-3.74 uIU/mL Urine Color LIGHT-YELLOW YELLOW Urine Appearance CLEAR CLEAR Urine pH 6.5 5.0-8.0 Urine Specific [place] 1.002 1.001-1.031 Urine Protein NEGATIVE NEGATIVE mg/dL Urine Glucose (UA) NEGATIVE NEGATIVE mg/dL Urine Ketones NEGATIVE NEGATIVE mg/dL Urine Occult Blood NEGATIVE NEGATIVE Urine Nitrate NEGATIVE NEGATIVE Urine Bilirubin NEGATIVE NEGATIVE mg/dL Urine Urobilinogen 0.2 0.2-1.0 mg/dL Urine Leukocyte Esterase NEGATIVE NEGATIVE [place]/uL Urine Opiates Screen NEGATIVE NEGATIVE Urine Barbiturates Screen NEGATIVE NEGATIVE Urine Phencyclidine Screen NEGATIVE NEGATIVE Urine Amphetamines Screen NEGATIVE NEGATIVE Urine Benzodiazepines Screen NEGATIVE NEGATIVE Urine Cocaine Screen NEGATIVE NEGATIVE Urine Marijuana (THC) Screen NEGATIVE NEGATIVE Test 05/09/25 00:12 Range/Units White Cell Morphology Comment See comments Prothrombin Time 16.1 H 9.6-11.6 SEC Prothromb Time International Ratio 1.59 H 0.85-1.15 Activated Partial Thromboplast Time 48.7 H 26.3-35.5 SEC Total Bilirubin 1.6 H 0.2-1.0 mg/dL Aspartate Amino Transf (AST/SGOT) 40 H 10-37 U/L Alanine Aminotransferase (ALT/SGPT) 31 12-78 U/L Alkaline Phosphatase 220 H 50-136 U/L Troponin I High Sensitivity 9 4-75 ng/L B-Type Natriuretic Peptide 36 0-100 pg/mL Total Protein 6.8 6.0-8.3 g/dL Albumin 1.6 L 3.5-5.0 g/dL Lipase 114 H 16-77 U/L Procalcitonin < 0.05 L 0.05-0.5 ng/mL Current Medications Medications (Trade) Dose Ordered Sig/Kevin Route PRN Reason Start Time Stop Time Status Last Admin Dose Admin Acetaminophen (TYLenol 325MG TAB) 650 mg Q6H PRN PO TEMPERATURE GREATER THAN 101.5 05/09/25 02:30 06/08/25 02:29 Albuterol (DUOneb) 1 UDVIAL [id number] IH 05/09/25 06:00 06/08/25 05:59 05/09/25 11:55 1 UDVIAL Ceftriaxone Sodium (Rocephin 2gm Inj) 2 gm Q24H IVPB 05/09/25 14:00 05/19/25 13:59 05/09/25 14:20 2 GM Doxycycline Hyclate 250 ml @ 125 mls/hr Q12H IV 05/09/25 02:30 05/19/25 02:29 05/09/25 13:10 125 MLS/HR Enoxaparin Sodium (Lovenox) 40 mg DAILY SQ 05/09/25 09:00 06/08/25 08:59 Famotidine (Pepcid 20mg Tab) 20 mg DAILY PO 05/09/25 09:00 06/08/25 08:59 05/09/25 08:12 20 MG Furosemide (LASix 40MG VIAL) 40 mg DAILY IV 05/09/25 14:00 06/08/25 13:59 05/09/25 14:19 40 MG Guaifenesin (RobiTUSSin SUGAR-FREE 100 MG/ 5 ML UDCUP) 400 mg Q4H PRN PO cough 05/09/25 02:30 06/08/25 02:29 Hydralazine HCl (APRESOLine 20MG INJ) 10 mg Q6H PRN IV For:SBP above 160;DBP above 90 05/09/25 02:30 06/08/25 02:29 Lactulose (Constulose 20gm/ 30ml Udcup) 20 gm BID PO 05/09/25 09:00 06/08/25 08:59 05/09/25 08:13 20 GM Magnesium Sulfate 50 ml @ 0 mls/hr PROTOCOL PRN IV h 05/09/25 02:30 06/08/25 02:29 05/09/25 06:26 25 MLS/HR Morphine Sulfate (morPHINE 2MG SYG) 2 mg Q4H PRN IVP SEVERE PAIN (7-10) 05/09/25 02:30 05/16/25 02:29 Ondansetron HCl (zoFRAN 4MG INJ) 4 mg Q6H PRN IV NAUSEA/VOMITING 05/09/25 02:30 06/08/25 02:29 Potassium Chloride 100 ml @ 100 mls/hr AD PRN IV POTASSIUM PROTOCOL 05/09/25 02:30 06/08/25 02:29 Potassium Chloride (K-Dur/Klor-Con 20meq) 20 meq AD PRN PO POTASSIUM PROTOCOL 05/09/25 02:30 06/08/25 02:29 Potassium Chloride (KCl 10% Elixir 20meq/15ml) 20 meq AD PRN PO POTASSIUM PROTOCOL 05/09/25 02:30 06/08/25 02:29 05/09/25 16:35 20 MEQ Spironolactone (Aldactone 25mg) 25 mg DAILY PO 05/09/25 14:00 06/08/25 13:59 05/09/25 14:20 25 MG DIAGNOSTICS / RADIOLOGY: [place] [address] IMAGING REPORT Signed PATIENT: FE RUST MR#: [id number] : 1970 SEX: M AGE: 55 LOCATION: EDHIP ORDER 1 STATUS: ADM IN REPORT#: [id number] SERVICE REASON: REEVALUATE RIGHT PNEUMOTHORAX ORDERING PHYSICIAN: JYOTI GONZALEZ MD PROCEDURE: CXR1VW - CHEST 1VW EXAM: CR Chest, 1 View. CLINICAL HISTORY: REEVALUATE RIGHT PNEUMOTHORAX COMPARISON: Chest single view earlier today 05/09/2025 0123 hrs. FINDINGS: Stable single view chest since prior exam. Unchanged severe pneumothorax (more than 90%) on the right side with compressive atelectasis and superior displacement of the entire right lung. Small pleural effusion on the right side. The left lung is clear. The cardiac size is within normal limits. No acute osseous abnormality. IMPRESSION: Unchanged severe pneumothorax (more than 90%) on the right side with compressive atelectasis and superior displacement of the entire right lung. Small pleural effusion on the right side. /[place] DICTATED BY: BAO SAEED Jr., MD DATE: 05/09/25757 ELECTRONICALLY SIGNED BY: BAO SAEED Jr., MD DATE: 05/09/25757 ASSESSMENT: Acute hypoxemic respiratory failure, POA Right sided large pneumothorax and small hydrothorax,POA Recent diagnosis of active tuberculosis, POA Cirrhosis of liver, POA Ascites, POA Coagulopathy secondary to decompensated liver cirrhosis, POA Iron Deficiency anemia Hyponatremia, POA Hypokalemia, POA Hypomagnesemia, POA . PLAN: Patient will be admitted to PCCU. Acute hypoxemic respiratory failure, POA Likely from pneumothorax and hydrothorax. DuoNebs every 6 hours. Supplemental oxygen to maintain O2 saturation greater 92%. Continue IV Rocephin and IV doxycycline empirically. Pulmonology consult appreciated and will follow their recommendations. Plan is for chest tube placement tomorrow. Right sided large pneumothorax and small hydrothorax,POA CT chest showed more than 90% of right sided pneumothorax and small hydrothorax. Pulmonology consult appreciated and plan is for chest tube placement tomorrow. Recent diagnosis of active tuberculosis, POA Patient was recently diagnosed with tuberculosis at the [facility]. Patient has the medical records. Patient is scheduled to start his anti-TB medications from Sunday. HIV tests nonreactive. Infectious disease consult pending. Symptomatic treatment for the cough with guaifenesin. Cirrhosis of liver, POA Ascites, POA Hepatitis panel non reactive. Gastroenterology consult requested and pending evaluation. Sodium restriction. Patient started on Spironolactone 25 mg daily and Lasix 40 mg IV daily. Ultrasound guided paracentesis is scheduled and pending. Continue Rocephin empirically for SBP. Coagulopathy secondary to decompensated liver cirrhosis, POA PT 16.1, INR 1.59 and Aptt 48.7. Iron Deficiency anemia: Hemoglobin 9.1 Iron panel studies showed iron 26, TIBC 160 and saturation 16.2%. Venofer 200 mg once Iv started. We will order stool occult blood. Hyponatremia, POA Na 126. Serum and urine osmolarity, electrolytes ordered. Hypokalemia, hypomagnesemia: K 3.3 and magnesium 1.5 Follow the protocols for the replacement. GI prophylaxis, famotidine DVT prophylaxis, Uriel's and SCDs avoid anticoagulation at this time due to known liver cirrhosis ATTESTATION BY PHYSICIAN I have seen and examined the patient. I reviewed the documentation, medical decision making, and treatment plan as noted by the mid-level provider above. I agree with the findings and plan of care. chasidy Delvalle MD, HARSHA MD May 09, 2025 17:01 LEONID BERRIOS MD May 10, 2025 01:22
--- NOTE | 2025-05-09 17:30 | NUR ---
MET W PATIENT AND MOTHER FOR DC PLANNING. BOTH PATIENT AND MOTHER APPEAR FRAIL. PATIENT IS HERE FOR VERY COMPLICATED PNEUMONIA /TB. MOTHER IN ROOM WITH PT. NO DME, NO SERVICES, PT HAS A VEHICLE. MOTHER DOES NOT DRIVE. FACESHEET REVIEWED, ADDRESS IN [place] IS A HOME THEY WERE STAYING AT WITH COUSINS BUT THEY HAD TO MOVE OUT TEMPORARILY PATIENT STATES THAT CURRENTLY HE AND HIS MOTHER YOBANI ARE LIVING IN A DOUBLE WIDE TRAILER IN [place] THAT ONE OF HER FRIENDS THAT DOESN'T USE IS MUCH. THAT LIVING SITUATION IS ALSO TEMPORARY. MOTHER STATES HER SISTER BRINGS HER FOOD FROM THE [employer] ON [address] BUT THEY ARE NOT REGISTERED WITH ANY [employer] AT THIS TIME. RESOURCE LIST GIVEN CT PENDING. DISCHARGE EXPECTED TO BE COMPLICATED. MOTHER AND OTHER FAMILY MEMBERS WILL NEED TO BE TESTED. HOUSING SITUATION TENOUS. COMPLIANCE ENGINEER TO EXPLORE SERVICES . WILL PUT IN REFERRAL FOR SUNDAY Addendum: 05/10/25 at 1100 by MAKEDA ROMERO RN Amended: Links added.
[2025-05-09] MEDS: SODIUM CHLORIDE 3% FOR INHALATION 4 ML/AMP VIAL.NEB IH ONE ×2 (19:19→23:46)
--- NOTE | 2025-05-09 23:00 | NUR ---
THREATENING TO LEAVE AMA AT THIS TIME PT TRYING TO LEAVE AMA, D/T LACK OF FOOD AND JUICE, SANDWICH AND JUICE WERE PROVIDED,BUT PATIENT WAS STILL THREATENING TO LEAVE AMA, ELECTRICAL MANUFACTURING ENGINEER NOTIFIED, HOSPITALIST TIM NAGY BRICK LAYER NOTIFIED AND FABIOLA FRANCE FOR BENCHMARK NOTIFIED, WILL CONT TO MONITOR
[2025-05-10] VITALS: BP 124/77; PULSE 94; RESP 21; TEMP 97.5
--- NOTE | 2025-05-10 03:00 | NUR ---
PATIENT TRYING TO LEAVE AMA, HAVE TO CONVINCE HIM TO STAY D/T HIS DIAGNOSIS OF TUBERCULOSIS, PT FINALLY CHANGE HIS MIND , NOW WILL STAY SO HE CAN GET THE CHEST TUBE INSERTED, WILL CONT TO MONITOR
[2025-05-10 03:56] VITALS: BP 142/75; PULSE 104; RESP 20; TEMP 97.5
[2025-05-10 03:57] VITALS: BP 140/82; PULSE 73; RESP 20; TEMP 98.8
[2025-05-10 04:27] LABS: IMMATURE GRANULOCYTE ABSOLUTE 0.01 K/uL (0-1); NUCLEATED RED BLOOD CELLS 0.0 % (0.0-0.19); PLATELET COUNT (AUTO) 122 K/uL (130-400); RED BLOOD CELL COUNT(AUTO) 2.72 MIL/uL (4.50-6.20); RED CELL DISTRIBUTION WIDTH 17.2 % (11.0-15.5); WHITE BLOOD COUNT (AUTO) 7.5 K/uL (4.8-10.8)
[2025-05-10 04:37] LABS: HEPATITIS A IGM ANTIBODY Non-Reactive (Nonreactive); HEPATITIS B CORE IGM ANTIBODY Non-Reactive (Negative)
[2025-05-10 05:44] LABS: ASPARTATE AMINOTRANSFERASE 37.0 U/L (10-37); CREATININE 0.7 mg/dL (0.5-1.3); GLOMERULAR FILTR. RATE CALC 110.0 mL/min (>90); GLUCOSE,RANDOM 107.0 mg/dL (70-105); SODIUM SERUM 131.0 mmol/L (136-145); TOTAL PROTEIN, SERUM 6.2 g/dL (6.0-8.3); UREA NITROGEN, BLOOD 9.0 mg/dL (7-18)
--- NOTE | 2025-05-10 06:47 | HMCIMG ---
EXAM: CR Chest, single view CLINICAL HISTORY: Monitor pneumothorax COMPARISON: Prior chest radiograph dated 09 May 2025, earlier in the same day. FINDINGS: Large right-sided pneumothorax (13.1 x 11.2 cm) with compressive atelectasis of the right lung. No evidence of pleural effusion. The cardiomediastinal silhouette is within normal limits. No acute osseous abnormality. IMPRESSION: Large right-sided pneumothorax (13.1 x 11.2 cm) with compressive atelectasis of the right lung. No evidence of pleural effusion. Compared to the prior study, there is no significant interval change. /[place]
[2025-05-10 06:50] VITALS: PULSE 93; RESP 20; O2SAT 100
--- NOTE | 2025-05-10 07:46 | HMCIMG ---
EXAM: CR Chest, single view CLINICAL HISTORY: Monitor pneumothorax COMPARISON: Prior chest radiograph dated 09 May 2025 FINDINGS: There is a stable large right pneumothorax with compressive atelectasis of the right lung. No evidence of pleural effusion. No pulmonary infiltrates. The cardiomediastinal silhouette is within normal limits. No acute osseous abnormality. IMPRESSION: Stable large right pneumothorax with compressive atelectasis of the right lung. /[place]
[2025-05-10 08:00] VITALS: BP 105/67; PULSE 96; RESP 21; TEMP 97
[2025-05-10] MEDS ORDERED: COMPOUND IV MISC 1 EACH IVSOLN MISC PRN (09:30)
--- NOTE | 2025-05-10 09:54 | PN ---
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 I personally counseled patient regarding his current life-threatening condition. I explained in clear terms that leaving the hospital at this time places him at a high risk for respiratory failure, worsening pneumothorax, tuberculosis complications, liver related complications and . I emphasized that without inpatient management including chest drainage monitoring his condition could deteriorate rapidly and be fatal. Patient is awake alert and oriented x3. He is demonstrates understanding of the risks, can repeat the Risks discussed, and he verbalized awareness that leaving could result in . Despite counseling, patient continues to insist on leaving the hospital against medical advice. He verbalized understanding of possibility of . AMA paperwork signed by patient. Patient was instructed to return to the ED immediately for worsening shortness of breaths, chest pain or syncope fever or any new worsening symptoms. Patient advised to report [facility] as scheduled for Sunday for TB treatment and pt verbalized understanding. TB isolation precautions were reinforced. Patient's mother was at the bedside and reports she also attempted to convince pt to stay but he doesn't wan to stay and is aware that he is signing against medical advice. REVIEW OF SYSTEMS: Const: + generalized malaise Eyes:[ no recent vision problems] ENT: [No congestion, ear pain, or sore throat] C/V: + Mild chest pain with breathing. Resp: + dyspnea on exertion and shortness of breaths. GI: + abdominal distention : [No incontinence of or dyuria] M/S: + bilateral lower extremity swelling. Skin: [No rash] Neuro: [no headache, focal numbness, or weakness, dizziness or seizures] Psych: [no depression or anxiety] Heme: [no abnormal bruising or bleeding] Lymph: [no swollen glands] PHYSICAL EXAM: GENERAL: alert, weak, awake oriented x 3 HEENT: EOMI, Sclera none icteric, moist mucosa NECK: Supple, no JVD, trachea midline LUNGS: Absent lung sounds to right lower lobes, diminished breath sounds left lobes. No wheezes HEART: Regular rate and rhythm. Normal S1 and S2, without murmurs ABD: Abdomen distended. Bowel sounds hypoactive. EXT: No clubbing cyanosis+ two pitting edema NEURO: Alert and oriented to person, follows commands Vital Signs (last 8hr) Date Time Temp Pulse Resp B/P (MAP) Pulse Ox O2 Delivery O2 Flow Rate FiO2 05/10/25 08:00 97.0 96 21 105/67 94 Nasal Cannula 05/10/25 06:50 93 20 05/10/25 06:50 93 20 Non Rebreather 15.0 100 05/10/25 03:57 98.8 73 20 140/82 94 Room Air 05/10/25 03:56 97.5 104 20 142/75 100 Nonrebreathing Mask 15.0 LABS: Hematology Labs: Test 05/10/25 04:11 05/09/25 00:12 Range/Units White Blood Count 7.5 4.8-10.8 K/uL Red Blood Count 2.72 L 4.50-6.20 MIL/uL Hemoglobin 8.9 L 14.0-18.0 g/dL Hematocrit 25.1 L 42-54 % Mean Corpuscular Volume 92.3 79-99 fL Mean Corpuscular Hemoglobin 32.7 27.0-33.0 pg Mean Corpuscular Hemoglobin Concent 35.5 32.0-36.0 g/dL Red Cell Distribution Width 17.2 H 11.0-15.5 % Platelet Count 122 L 130-400 K/uL Mean Platelet Volume 8.6 7.5-10.5 fL Immature Granulocyte % (Auto) 0.1 0-1 % Neutrophils (%) (Auto) 82.1 H 40.0-77.0 % Lymphocytes (%) (Auto) 8.1 L 21.0-51.0 % Monocytes (%) (Auto) 8.4 3.0-13.0 % Eosinophils (%) (Auto) 0.8 0.0-8.0 % Basophils (%) (Auto) 0.5 0.0-5.0 % Neutrophils # (Auto) 6.2 1.8-7.7 K/uL Lymphocytes # (Auto) 0.6 L 1.0-4.8 K/uL Monocytes # (Auto) 0.6 0.1-1.0 K/uL Eosinophils # (Auto) 0.06 0.00-0.70 K/uL Basophils # (Auto) 0.04 0.00-0.20 K/uL Absolute Immature Granulocyte (auto 0.01 0-1 K/uL Nucleated Red Blood Cells 0.0 0.0-0.19 % White Cell Morphology Comment See comments Chemistry Labs: Test 05/10/25 04:11 05/09/25 06:43 05/09/25 05:37 05/09/25 00:12 Range/Units Sodium Level 131 L 136-145 mmol/L Potassium Level 3.3 L 3.5-5.1 mmol/L Chloride Level 100 L 101-111 mmol/L Carbon Dioxide Level 25 21-32 mmol/L Blood Urea Nitrogen 9 7-18 mg/dL Creatinine 0.7 0.5-1.3 mg/dL Glomerular Filtration Rate Calc 110 >90 mL/min Random Glucose 107 H 70-105 mg/dL Total Calcium 7.2 L 8.5-10.1 mg/dL Magnesium Level 1.60 L 1.80-2.40 mg/dL Total Bilirubin 1.1 H 0.2-1.0 mg/dL Aspartate Amino Transf (AST/SGOT) 37 10-37 U/L Alanine Aminotransferase (ALT/SGPT) 27 12-78 U/L Alkaline Phosphatase 193 H 50-136 U/L Total Protein 6.2 6.0-8.3 g/dL Albumin 1.4 L 3.5-5.0 g/dL Procalcitonin < 0.05 L 0.05-0.5 ng/mL Iron Level 26 L 65-175 mcg/dL Total Iron Binding Capacity 160 L 250-450 mcg/dL Percent Iron Saturation 16.2 L 30-44 % Serum Osmolality 299 278-305 mOsm/kg Lactic Acid Level 1.3 0.8-2.5 mmol/L Phosphorus Level 3.4 2.5-4.9 mg/dL Ammonia 13 11-32 umol/L Triglycerides Level 32 30-200 mg/dL Cholesterol Level 78 <200 mg/dL LDL Cholesterol 39 0-99 mg/dL HDL Cholesterol 40 29-71 mg/dL Thyroid Stimulating Hormone (TSH) 3.57 0.36-3.74 uIU/mL Troponin I High Sensitivity 9 4-75 ng/L B-Type Natriuretic Peptide 36 0-100 pg/mL Lipase 114 H 16-77 U/L Coagulation Labs: Test 05/09/25 00:12 Range/Units Prothrombin Time 16.1 H 9.6-11.6 SEC Prothromb Time International Ratio 1.59 H 0.85-1.15 Activated Partial Thromboplast Time 48.7 H 26.3-35.5 SEC DIAGNOSTICS / RADIOLOGY RESULTS: [ ] PLAN Upgraded to PCCU -high-risk for decompensation AFBs, TB QuantiFERON ID consult get records from [facility] Plan for 20fr chest tube placement tomorrow. Ther is no evidence of tension. pt is stable. No need for emergent chest tube placement at this time. NEURO: Minimize central acting medications as possible. Maintain fall precautions, adequate lighting during the day PULMONARY: Supplemental 02 as needed. Maintain aspiration precautions at all times CARDIOVASCULAR: Follow hemodynamics. Vital signs per facility protocol GI & NUTRITION: Continue with nutritional support. Continue stool softeners and laxatives as needed. KIDNEYS & ELECTROLYTES: Strict monitoring of intake, output and overall fluid balance. Avoid nephrotoxic medications to the extent possible. Medications to be dosed according to renal function. Monitor electrolytes and replace as needed ENDOCRINE: Maintain blood glucose between 100-180 at all times. Hypoglycemia protocol in place INFECTIOUS DISEASE: Trend temperature, WBC and procalcitonin level Follow cultures, deescalate antibiotics as soon as possible. Panculture if new onset fever ONCOLOGY/HEMATOLOGY/COAGULATION: Monitor for s/s of bleeding Monitor hemoglobin, coagulation studies as needed SKIN: Pressure ulcer prevention per facility protocol Specialty mattress ORTHO/REHAB: Continue PT/OT Prophylaxis: Continue GI and DVT prophylaxis Code Status: Full Resuscitation Disposition: TBD Other: Total patient care time exceeds 35 minutes excluding all procedures. ATTESTATION BY PHYSICIAN I reviewed the documentation, medical decision making, and treatment plan as noted by the mid-level provider above. I agree with the findings and plan of care. Raúl Thomas MD, [facility] May 10, 2025 09:54
--- NOTE | 2025-05-10 11:54 | NUR ---
PATIENT THREATENING TO LEAVE AMA. CONSULTED Karma SCHNEIDER CM AND KANDI PRIMARY RN. BETTER IF PATIENT STAYS UNTIL AT LEAST TOMORROW SPOKE TO PT AT BEDSIDE. EXPLAINED THAT IF HE STAYS UNTIL TOMORROW WE CAN GET HIM SET UP WITH [facility] FOR HIS TB MEDS. PT STATED DID NOT KNOW THAT TB MEDS AND TREATMENT WAS FREE ASKED HIM TO PLEASE STAY UNTIL TOMORROW. PT AGREED. STATED HE DID NOT WANT TO BE POKED. ASKED ABOUT PICC LINES, EXPLAINED PROCESS. AGREED TO LET ME ADVISED SHYANN THE CLOTH EXAMINER MACHINE TO PLACE ORDER FOR PICC. PATIENT SIGN THE AMA FORM BC I EXPLAINED IF HE WANTED TO LEAVE AT ANY TIME, THE FORM IS ALREADY SIGNED. PT STATES WANTED A CHANGE IN NURSES. ADVISED LEONOR HULL, AND PRIMARY RN KANDI ADVISED SHYANN OF PATIENT DECISION AND AGREEMENT TO HAVE A PICC LINE
[2025-05-10 11:59] VITALS: PULSE 95; RESP 20; O2SAT 100
--- NOTE | 2025-05-10 12:50 | NUR ---
DR. AVALOS HERE AND SPOKE WITH PATIENT AND PATIENT ADVISED DR. AVALOS THAT HE WAS GOING AMA, DR. AVALOS WAS SHOWN THE AMA PAPERWORK AND PT THEN PROCEEDED TO LEAVE WITH HIS MOTHER AT HIS SIDE.
--- NOTE | 2025-05-10 14:29 | PN ---
INFECTIOUS DISEASE PROGRESS NOTE Date of Service: May 10, 2025 SUBJECTIVE: This 55 year old male patient is being seen today in PCU. Awake, alert and oriented, currently on oxygen via venti mask. He states he was going to start TB medication tomorrow at home and would like to go home. Educated patient on importance of hospital treatment and he could follow with county once he's d/c. Patient stated he already signed AMA forms and wishes to go home now. Informed nurse on patient's wishes. PHYSICAL EXAM EYES: Anicteric. Pupils equal and reactive. HENT: No oral thrush seen, moist Oral mucosa NECK: Supple, no JVD or thyromegaly. LUNGS: diminished breath sounds to left , on oxygen CARDIOVASCULAR: S1, S2 regular. No murmur heard. ABDOMEN: Abdomen distended, hypoactive bowel sounds. CENTRAL NERVOUS SYSTEM: Awake, alert, oriented x 3. No focal deficits. SKIN: No rashes, no swelling. LYMPHATICS: No peripheral lymphadenopathy MUSCULOSKELETAL: No joint swelling, erythema or tenderness. EXTREMITIES: No cyanosis or clubbing BACK: No deformity, no pressure ulcer. GENITOURINARY: No dysuria or hematuria Vital Sign (Last 12 Hours) 05/10/25 05/10/25 05/10/25 05/10/25 03:56 03:57 06:50 06:50 Temp 97.5 98.8 Pulse 104 73 93 93 Resp 20 20 20 20 B/P (MAP) 142/75 140/82 Pulse Ox 100 94 O2 Delivery Nonrebreathing Mask Room Air Non Rebreather O2 Flow Rate 15.0 15.0 FiO2 100 05/10/25 05/10/25 05/10/25 05/10/25 08:00 11:59 11:59 12:00 Temp 97.0 Pulse 96 95 95 Resp 21 20 20 B/P (MAP) 105/67 Pulse Ox 94 O2 Delivery Nasal Cannula Non Rebreather REFUSED NN REBREATHER O2 Flow Rate 15.0 FiO2 100 Intake & Output (last 24hrs) 05/09/25 05/09/25 05/10/25 15:00 23:00 07:00 Intake Total 200 ml Output Total 100 ml 300 ml 100 ml Balance -100 ml -100 ml -100 ml LABS: Laboratory: Test 05/10/25 04:11 05/09/25 14:40 05/09/25 06:43 05/09/25 05:37 Range/Units White Blood Count 7.5 4.8-10.8 K/uL Red Blood Count 2.72 L 4.50-6.20 MIL/uL Hemoglobin 8.9 L 14.0-18.0 g/dL Hematocrit 25.1 L 42-54 % Mean Corpuscular Volume 92.3 79-99 fL Mean Corpuscular Hemoglobin 32.7 27.0-33.0 pg Mean Corpuscular Hemoglobin Concent 35.5 32.0-36.0 g/dL Red Cell Distribution Width 17.2 H 11.0-15.5 % Platelet Count 122 L 130-400 K/uL Mean Platelet Volume 8.6 7.5-10.5 fL Immature Granulocyte % (Auto) 0.1 0-1 % Neutrophils (%) (Auto) 82.1 H 40.0-77.0 % Lymphocytes (%) (Auto) 8.1 L 21.0-51.0 % Monocytes (%) (Auto) 8.4 3.0-13.0 % Eosinophils (%) (Auto) 0.8 0.0-8.0 % Basophils (%) (Auto) 0.5 0.0-5.0 % Neutrophils # (Auto) 6.2 1.8-7.7 K/uL Lymphocytes # (Auto) 0.6 L 1.0-4.8 K/uL Monocytes # (Auto) 0.6 0.1-1.0 K/uL Eosinophils # (Auto) 0.06 0.00-0.70 K/uL Basophils # (Auto) 0.04 0.00-0.20 K/uL Absolute Immature Granulocyte (auto 0.01 0-1 K/uL Nucleated Red Blood Cells 0.0 0.0-0.19 % Sodium Level 131 L 136-145 mmol/L Potassium Level 3.3 L 3.5-5.1 mmol/L Chloride Level 100 L 101-111 mmol/L Carbon Dioxide Level 25 21-32 mmol/L Blood Urea Nitrogen 9 7-18 mg/dL Creatinine 0.7 0.5-1.3 mg/dL Glomerular Filtration Rate Calc 110 >90 mL/min Random Glucose 107 H 70-105 mg/dL Total Calcium 7.2 L 8.5-10.1 mg/dL Magnesium Level 1.60 L 1.80-2.40 mg/dL Total Bilirubin 1.1 H 0.2-1.0 mg/dL Aspartate Amino Transf (AST/SGOT) 37 10-37 U/L Alanine Aminotransferase (ALT/SGPT) 27 12-78 U/L Alkaline Phosphatase 193 H 50-136 U/L Total Protein 6.2 6.0-8.3 g/dL Albumin 1.4 L 3.5-5.0 g/dL Procalcitonin < 0.05 L 0.05-0.5 ng/mL Urine Random Creatinine 74.21 30-135 mg/dL Urine Random Sodium 48 40-220 mmol/l Urine Random Potassium 35 25-125 mmol/L Urine Random Chloride 105 L 110-250 mmol/L Iron Level 26 L 65-175 mcg/dL Total Iron Binding Capacity 160 L 250-450 mcg/dL Percent Iron Saturation 16.2 L 30-44 % HIV (1&2) Antibody Non-Reactive Negative HIV P24 Antigen, Qualitative Non-Reactive Negative Serum Osmolality 299 278-305 mOsm/kg Lactic Acid Level 1.3 0.8-2.5 mmol/L Phosphorus Level 3.4 2.5-4.9 mg/dL Ammonia 13 11-32 umol/L Triglycerides Level 32 30-200 mg/dL Cholesterol Level 78 <200 mg/dL LDL Cholesterol 39 0-99 mg/dL HDL Cholesterol 40 29-71 mg/dL Thyroid Stimulating Hormone (TSH) 3.57 0.36-3.74 uIU/mL Hepatitis A IgM Antibody Non-Reactive Nonreactive Hepatitis B Surface Antigen. Non-Reactive Nonreactive Hepatitis B Core IgM Antibody Non-Reactive Negative Hepatitis C Antibody Non-Reactive Nonreactive Test 05/09/25 04:51 05/09/25 00:12 Range/Units Urine Color LIGHT-YELLOW YELLOW Urine Appearance CLEAR CLEAR Urine pH 6.5 5.0-8.0 Urine Specific [place] 1.002 1.001-1.031 Urine Protein NEGATIVE NEGATIVE mg/dL Urine Glucose (UA) NEGATIVE NEGATIVE mg/dL Urine Ketones NEGATIVE NEGATIVE mg/dL Urine Occult Blood NEGATIVE NEGATIVE Urine Nitrate NEGATIVE NEGATIVE Urine Bilirubin NEGATIVE NEGATIVE mg/dL Urine Urobilinogen 0.2 0.2-1.0 mg/dL Urine Leukocyte Esterase NEGATIVE NEGATIVE [place]/uL Urine Osmolality 86 50-1200 mOsm/kg Urine Opiates Screen NEGATIVE NEGATIVE Urine Barbiturates Screen NEGATIVE NEGATIVE Urine Phencyclidine Screen NEGATIVE NEGATIVE Urine Amphetamines Screen NEGATIVE NEGATIVE Urine Benzodiazepines Screen NEGATIVE NEGATIVE Urine Cocaine Screen NEGATIVE NEGATIVE Urine Marijuana (THC) Screen NEGATIVE NEGATIVE White Cell Morphology Comment See comments Prothrombin Time 16.1 H 9.6-11.6 SEC Prothromb Time International Ratio 1.59 H 0.85-1.15 Activated Partial Thromboplast Time 48.7 H 26.3-35.5 SEC Troponin I High Sensitivity 9 4-75 ng/L B-Type Natriuretic Peptide 36 0-100 pg/mL Lipase 114 H 16-77 U/L DIAGNOSTICS / RADIOLOGY: REASON: hypoxic resp failure ORDERING PHYSICIAN: SHYANN LOPEZ PROCEDURE: CXR1VW - CHEST 1VW EXAM: CR Chest, single view CLINICAL HISTORY: Monitor pneumothorax COMPARISON: Prior chest radiograph dated 09 May 2025 FINDINGS: There is a stable large right pneumothorax with compressive atelectasis of the right lung. No evidence of pleural effusion. No pulmonary infiltrates. The cardiomediastinal silhouette is within normal limits. No acute osseous abnormality. IMPRESSION: Stable large right pneumothorax with compressive atelectasis of the right lung. /[place] REASON: sob ORDERING PHYSICIAN: KENDY ALVAREZ PROCEDURE: CHEST WO - CT CHEST W/O CONTRAST ADDENDUM REPORT ADDENDUM: Results were shared by telephone at 4:54 am on 05-09-25 and acknowledged by Charlette Hearn Dr. /[place] EXAM: CT Chest without IV contrast CLINICAL HISTORY: Shortness of breath. TECHNIQUE: Thin-section axial CT through the thorax without intravenous contrast. Coronal, sagittal and MIP reformation were generated on the same workstation. CT scan done according to ALARA (As Low as Reasonably Achievable). CONTRAST USED: None. COMPARISON: None provided. FINDINGS: Large pneumo on the right side.Large pneumothorax and a small hydrothoraxthorax and a small hydrothorax on the right side. Complete collapse of the right middle and lower lobes with partial collapse of the right upper lobe with superior medial displacement of the compressed right lung. Dependent atelectasis with minimal pleural effusion on the left side. No pericardial effusion. The heart size is within normal limits. No axillary, supraclavicular, or mediastinal lymphadenopathy. No focal thyroid abnormality. Limited views of the upper abdomen demonstrate large free fluid in the visualized upper abdomen. Possible cirrhotic changes in the liver. No acute or suspicious osseous abnormality. Mild thoracolumbar spondylosis. IMPRESSION: Large pneumothorax and a small hydrothorax on the right side. Complete collapse of the right middle and lower lobes with partial collapse of the right upper lobe with superior medial displacement of the compressed right lung. Dependent atelectasis with minimal pleural effusion on the left side. Large free fluid in the visualized upper abdomen with possible cirrhotic changes in the liver. /[place] ASSESSMENT: Acute hypoxemic respiratory failure Tuberculosis per patient Large pneumothorax and small hydrothorax on the right Liver cirrhosis with ascites anemia. PLAN: Continue oxygen continue maintenance mechanic millwright recommendations follow up with cultures patient to follow up with [facility] once D/C for proper antiviral medications This case has been discussed with my supervising physician Dr. Bolivar. The case has been discussed and agreed upon. KIKE SHANKAR [facility] May 10, 2025 14:29
--- NOTE | 2025-05-10 17:55 | DS ---
Discharge Summary Hospital Course Summary: The patient is 55-year-old male with a past medical history of alcoholic liver cirrhosis, and recent TB diagnosis with the scheduled appointment on Sunday with [facility] for medications who presented to the ED with complaints of shortness of breaths. As per patient he was sleeping and developed shortness of breath suddenly. Dyspnea was noted with minimal exertion. Patient reported previous recent admissions at [facility] for similar symptoms and reported previous chest tube placements for large pleural effusion. On arrival to the ED patient has a temperature 98.8 pulse of 109 respiratory rate of 27 blood pressure 141/95 saturating 99% at room air. Laboratory was remarkable for H&H of 9.6/27.4, WBC of 8.4, and platelets 146. Chemistries shows sodium of 125, potassium of 3.2, chloride of 95, glucose 112 mg/dL, total calcium of 7.3, albumin of 1.6, calculated calcium per albumin 9.2, lipase of 114, total bili 1.6, AST of 40, alkaline phosphatase of 220. Coagulation studies showed a PT of 16.1 INR 1.59 APTT of 48.7. Urinalysis and urine drug study were unremarkable. The patient was negative for hepatitis and HIV. Initial chest x-ray showed severe pneumothorax more than 90% on the right side with compressive atelectasis and superior displacement of the right lung. CT scan of the chest showed a large pneumothorax and small hydrothorax of the right side along with complete collapse of the right middle and lower lobes with partial collapse of the right upper lobe and superior medial displacement of the compressed right lung. Dependent atelectasis with minimal pleural effusions with the left side was also seen. Large free fluid in the visualized upper abdomen with possible cirrhotic changes in the liver.The patient was admitted with airborne precaution due to possible TB, for pneumothorax and critical care management. He was on non-rebreather face mask at 100% oxygen FiO2. Patient was started on IV Rocephin and IV doxycycline empirically and infectious disease was consulted. Due to liver cirrhosis, he was on sodium restriction. He was started on spironolactone 25 mg and Lasix 40 mg. Due to low hemoglobin, the patient was started on iron sucrose. Potassium and magnesium for replaced according to protocol. The patient was planned for chest tube placement and pleural fluid tap for culture, pH, cell count, and protein. During the course of admission the patient was noncompliant with treatment. He requested for an AMA 3 times yesterday but was convinced to stay in the hospital and continue treatment. Today also the patient threatened to leave AMA. He was explained that if he stays until tomorrow, we can get him set up with [facility] for his TB m edication. The patient agreed and asked for a PICC line as he did not want to be poked. But after this discussion the patient again threatened to leave AMA, and was very adamant. Infectious disease visited the patient today and educated him on importance of hospital treatment, but the patient wanted to leave. He stated that he was going to start TB medication tomorrow at home and would like to go home. He was explained in detail the consequences of leaving treatment for his condition but the patient wanted to leave as soon as possible. The patient signed out against medical advice from the hospital. As per the primary nurse, the patient does not wish to continue any treatment at this time and is refusing to stay and complete evaluation and disposition. The patient is fully aware of all the risks and benefits of leaving against medical advice. Possible benefits include correction of the current medical condition and improvement of symptoms. However, the patient was advised that possible risks of leaving against medical advice include worsening of the current medical condition, including or causing . The patient/ caregiver verbalized understanding of the risk and benefits discussed. Despite this, the patient signed out against medical advice. Personal Assistant(s): Pulmonology Infectious disease Procedure(s): PATIENT: FE CHILD MR#: [id number] : 1970 SEX: M AGE: 55 LOCATION: [facility] ORDER 48 STATUS: ADM IN REPORT#: [id number] SERVICE REASON: sob ORDERING PHYSICIAN: KENDY ALVAREZ PROCEDURE: CXR1VW - CHEST 1VW ADDENDUM REPORT ADDENDUM: Results were shared by telephone at 3:46 am on 05-09-25 and acknowledged by Charlette Hearn. /[place] EXAM: CR Chest, 1 view CLINICAL HISTORY: Shortness of breath. COMPARISON: None provided. FINDINGS: Severe pneumothorax (more than 90%) on the right side with compressive atelectasis and superior displacement of the entire right lung. Small pleural effusion on the right side. The left lung is clear. The cardiac size is within normal limits. No acute osseous abnormality. IMPRESSION: Severe pneumothorax (more than 90%) on the right side with compressive atelectasis and superior displacement of the entire right lung. Small pleural effusion on the right side. /[facility] DICTATED BY: BAO SAEED Jr., MD DATE: 05/09/25409 ELECTRONICALLY SIGNED BY: DATE: EXAM: CR Chest, 1 view CLINICAL HISTORY: Shortness of breath. COMPARISON: None provided. FINDINGS: Severe pneumothorax (more than 90%) on the right side with compressive atelectasis and superior displacement of the entire right lung. Small pleural effusion on the right side. The left lung is clear. The cardiac size is within normal limits. No acute osseous abnormality. IMPRESSION: Severe pneumothorax (more than 90%) on the right side with compressive atelectasis and superior displacement of the entire right lung. Small pleural effusion on the right side. /[facility] DICTATED BY: BAO SAEED Jr., MD DATE: 05/09/25328 ELECTRONICALLY SIGNED BY: BAO SAEED Jr., MD DATE: 05/09/25328 PATIENT: FE CHILD MR#: [id number] : 1970 SEX: M AGE: 55 LOCATION: [facility] ORDER 3 STATUS: ADM IN REPORT#: [id number] SERVICE 2 REASON: sob ORDERING PHYSICIAN: KENDY ALVAREZ PROCEDURE: CHEST WO - CT CHEST W/O CONTRAST ADDENDUM REPORT ADDENDUM: Results were shared by telephone at 4:54 am on 05-09-25 and acknowledged by Marti Hearn Druradha. /[facility] EXAM: CT Chest without IV contrast CLINICAL HISTORY: Shortness of breath. TECHNIQUE: Thin-section axial CT through the thorax without intravenous contrast. Coronal, sagittal and MIP reformation were generated on the same workstation. CT scan done according to ALARA (As Low as Reasonably Achievable). CONTRAST USED: None. COMPARISON: None provided. FINDINGS: Large pneumo on the right side.Large pneumothorax and a small hydrothoraxthorax and a small hydrothorax on the right side. Complete collapse of the right middle and lower lobes with partial collapse of the right upper lobe with superior medial displacement of the compressed right lung. Dependent atelectasis with minimal pleural effusion on the left side. No pericardial effusion. The heart size is within normal limits. No axillary, supraclavicular, or mediastinal lymphadenopathy. No focal thyroid abnormality. Limited views of the upper abdomen demonstrate large free fluid in the visualized upper abdomen. Possible cirrhotic changes in the liver. No acute or suspicious osseous abnormality. Mild thoracolumbar spondylosis. IMPRESSION: Large pneumothorax and a small hydrothorax on the right side. Complete collapse of the right middle and lower lobes with partial collapse of the right upper lobe with superior medial displacement of the compressed right lung. Dependent atelectasis with minimal pleural effusion on the left side. Large free fluid in the visualized upper abdomen with possible cirrhotic changes in the liver. /[place] DICTATED BY: BAO SAEED Jr., MD DATE: 05/09/25 0504 ELECTRONICALLY SIGNED BY: DATE: EXAM: CT Chest without IV contrast CLINICAL HISTORY: Shortness of breath. TECHNIQUE: Thin-section axial CT through the thorax without intravenous contrast. Coronal, sagittal and MIP reformation were generated on the same workstation. CT scan done according to ALARA (As Low as Reasonably Achievable). CONTRAST USED: None. COMPARISON: None provided. FINDINGS: Large pneumo on the right side.Large pneumothorax and a small hydrothoraxthorax and a small hydrothorax on the right side. Complete collapse of the right middle and lower lobes with partial collapse of the right upper lobe with superior medial displacement of the compressed right lung. Dependent atelectasis with minimal pleural effusion on the left side. No pericardial effusion. The heart size is within normal limits. No axillary, supraclavicular, or mediastinal lymphadenopathy. No focal thyroid abnormality. Limited views of the upper abdomen demonstrate large free fluid in the visualized upper abdomen. Possible cirrhotic changes in the liver. No acute or suspicious osseous abnormality. Mild thoracolumbar spondylosis. IMPRESSION: Large pneumothorax and a small hydrothorax on the right side. Complete collapse of the right middle and lower lobes with partial collapse of the right upper lobe with superior medial displacement of the compressed right lung. Dependent atelectasis with minimal pleural effusion on the left side. Large free fluid in the visualized upper abdomen with possible cirrhotic changes in the liver. /[place] DICTATED BY: BAO SAEED Jr., MD DATE: 05/09/25433 ELECTRONICALLY SIGNED BY: BAO SAEED Jr., MD DATE: 05/09/25433 PATIENT: FE CHILD MR#: [id number] : 1970 SEX: M AGE: 55 LOCATION: [facility] ORDER 1 STATUS: ADM IN REPORT#: [id number] SERVICE 0 REASON: REEVALUATE RIGHT PNEUMOTHORAX ORDERING PHYSICIAN: CHARLETTE GONZALEZ MD PROCEDURE: CXR1VW - CHEST 1VW EXAM: CR Chest, 1 View. CLINICAL HISTORY: REEVALUATE RIGHT PNEUMOTHORAX COMPARISON: Chest single view earlier today 05/09/2025 0123 hrs. FINDINGS: Stable single view chest since prior exam. Unchanged severe pneumothorax (more than 90%) on the right side with compressive atelectasis and superior displacement of the entire right lung. Small pleural effusion on the right side. The left lung is clear. The cardiac size is within normal limits. No acute osseous abnormality. IMPRESSION: Unchanged severe pneumothorax (more than 90%) on the right side with compressive atelectasis and superior displacement of the entire right lung. Small pleural effusion on the right side. /[facility] DICTATED BY: BAO SAEED Jr., MD DATE: 05/09/258 ELECTRONICALLY SIGNED BY: BAO SAEED Jr., MD DATE: 05/09/258 PATIENT: FE CHILD MR#: [id number] : 1970 SEX: M AGE: 55 LOCATION: [facility] ORDER 1710 STATUS: ADM IN REPORT#: [id number] SERVICE 1709 REASON: MONITOR PNEUMO ORDERING PHYSICIAN: SHYANN LOPEZ PROCEDURE: CXR1VW - CHEST 1VW EXAM: CR Chest, single view CLINICAL HISTORY: Monitor pneumothorax COMPARISON: Prior chest radiograph dated 09 May 2025, earlier in the same day. FINDINGS: Large right-sided pneumothorax (13.1 x 11.2 cm) with compressive atelectasis of the right lung. No evidence of pleural effusion. The cardiomediastinal silhouette is within normal limits. No acute osseous abnormality. IMPRESSION: Large right-sided pneumothorax (13.1 x 11.2 cm) with compressive atelectasis of the right lung. No evidence of pleural effusion. Compared to the prior study, there is no significant interval change. /[facility] DICTATED BY: BAO SAEED Jr., MD DATE: 05/10/25746 ELECTRONICALLY SIGNED BY: BAO SAEED Jr., MD DATE: 05/10/25746 PATIENT: FE CHILD MR#: [id number] : 1970 SEX: M AGE: 55 LOCATION: [facility] ORDER 2300 STATUS: ADM IN REPORT#: [id number] SERVICE 0600 REASON: hypoxic resp failure ORDERING PHYSICIAN: SHYANN LOPEZ PROCEDURE: CXR1VW - CHEST 1VW EXAM: CR Chest, single view CLINICAL HISTORY: Monitor pneumothorax COMPARISON: Prior chest radiograph dated 09 May 2025 FINDINGS: There is a stable large right pneumothorax with compressive atelectasis of the right lung. No evidence of pleural effusion. No pulmonary infiltrates. The cardiomediastinal silhouette is within normal limits. No acute osseous abnormality. IMPRESSION: Stable large right pneumothorax with compressive atelectasis of the right lung. /[place] DICTATED BY: DEBRA LÓPEZ MD DATE: 05/10/25844 ELECTRONICALLY SIGNED BY: DEBRA LÓPEZ MD DATE: 05/10/25844 Assessment/Plan: ASSESSMENT: Acute hypoxemic respiratory failure, POA Right sided large pneumothorax and small hydrothorax,POA Recent diagnosis of active tuberculosis, POA Cirrhosis of liver, POA Ascites, POA Coagulopathy secondary to decompensated liver cirrhosis, POA Iron Deficiency anemia Hyponatremia, POA Hypokalemia, POA Hypomagnesemia, POA . PLAN: Patient will be admitted to PCCU. Acute hypoxemic respiratory failure, POA Likely from pneumothorax and hydrothorax. DuoNebs every 6 hours. Supplemental oxygen to maintain O2 saturation greater 92%. Continue IV Rocephin and IV doxycycline empirically. Pulmonology consult appreciated and will follow their recommendations. Plan is for chest tube placement tomorrow. Right sided large pneumothorax and small hydrothorax,POA CT chest showed more than 90% of right sided pneumothorax and small hydrothorax. Pulmonology consult appreciated and plan is for chest tube placement tomorrow. Recent diagnosis of active tuberculosis, POA Patient was recently diagnosed with tuberculosis at the [facility]. Patient has the medical records. Patient is scheduled to start his anti-TB medications from Sunday. HIV tests nonreactive. Infectious disease consult pending. Symptomatic treatment for the cough with guaifenesin. Cirrhosis of liver, POA Ascites, POA Hepatitis panel non reactive. Gastroenterology consult requested and pending evaluation. Sodium restriction. Patient started on Spironolactone 25 mg daily and Lasix 40 mg IV daily. Ultrasound guided paracentesis is scheduled and pending. Continue Rocephin empirically for SBP. Coagulopathy secondary to decompensated liver cirrhosis, POA PT 16.1, INR 1.59 and Aptt 48.7. Iron Deficiency anemia: Hemoglobin 9.1 Iron panel studies showed iron 26, TIBC 160 and saturation 16.2%. Venofer 200 mg once Iv started. We will order stool occult blood. Hyponatremia, POA Na 126. Serum and urine osmolarity, electrolytes ordered. Hypokalemia, hypomagnesemia: K 3.3 and magnesium 1.5 Follow the protocols for the replacement. GI prophylaxis, famotidine DVT prophylaxis, Uriel's and SCDs avoid anticoagulation at this time due to known liver cirrhosis Discharge Instructions: The patient signed out against medical advice from the hospital. As per the primary nurse, the patient does not wish to continue any treatment at this time and is refusing to stay and complete evaluation and disposition. The patient is fully aware of all the risks and benefits of leaving against medical advice. Possible benefits include correction of the current medical condition and improvement of symptoms. However, the patient was advised that possible risks of leaving against medical advice include worsening of the current medical condition, including or causing . The patient/ caregiver verbalized und erstanding of the risk and benefits discussed. Despite this, the patient signed out against medical advice. Home Medications: No Active Prescriptions or Reported Meds Time spent arranging discharge: 1-30 minutes PHYSICIAN RESIDENT STATEMENT I was present with the resident during the History and Physical exam and I have reviewed the resident's note. This case was discussed with the resident and I agree with the history, physical exam and medical decision making as documented. Additions/exceptions/observations were directly added to the notes. Hemant Delvalle MD, SYED M MD May 10, 2025 17:55
--- NOTE | 2025-05-11 08:00 | HMCIMG ---
EXAMINATION: ULTRASOUND OF THE ABDOMEN (LIMITED). CLINICAL HISTORY: Abdominal distension. COMPARISON: None. TECHNIQUE: Real-time grayscale ultrasound images of the abdomen. FINDINGS: There is Moderate free fluid in the peritoneal cavity in all the four quadrants. IMPRESSION: Moderate ascites. /[facility]
[2025-05-12 16:12] LABS: QUANTIFERON MITOGEN VALUE 1.57 IU/mL (.); QUANTIFERON NIL VALUE 0.08 IU/mL (.)
== END 2025-05-10 13:02 | disposition left against medical advice (07) | DRG 189 ==
LOC: EDH 23:17 → EDHIP 23:18 → 2AH 05-09 16:35
PROVIDERS: ADMIT Internal Medicine; ATTEND Internal Medicine
DX: J96.01 Acute respiratory failure with hypoxia (principal); K85.90 Acute pancreatitis without necrosis or infection, unspecified; J18.9 Pneumonia, unspecified organism; A15.9 Respiratory tuberculosis unspecified; D68.9 Coagulation defect, unspecified; E87.1 Hypo-osmolality and hyponatremia; R18.8 Other ascites; D50.9 Iron deficiency anemia, unspecified; E83.42 Hypomagnesemia; K74.60 Unspecified cirrhosis of liver; E83.51 Hypocalcemia; E87.6 Hypokalemia; E88.09 Other disorders of plasma-protein metabolism, not elsewhere classified; Z78.9 Other specified health status; Z79.899 Other long term (current) drug therapy; Z86.11 Personal history of tuberculosis; Z91.199 Patient's noncompliance with other medical treatment and regimen due to unspecified reason
CPT/HCPCS: 36415; 71045; 71250; 76705; 80048; 80051; 80053; 80061; 80074; 80305; 81003; 82140; 82533; 82570; 83540; 83550; 83605; 83690; 83735; 83880; 83930; 83935; 84100; 84145; 84443; 84484; 85025; 85610; 85730; 86480; 86701; 86850; 86900; 86901; 87040; 87390; 93005; 94640; 94664; 96374; 96375; 99285; G0378; J0696; J1650; J1756; J1938; J2270; J2405; J3475; J3490; J7050